=== PATIENT | male | born 1950 | race American Indian/Alaskan Native ===

== ENCOUNTER 2016-12-17 16:21 | Outpatient (CLI) | payer OTHER ==
--- NOTE | 2016-12-18 11:53 | Magnetic Resonance Report ---
MRI UPPER EXTREMITY JOINT LEFT WITHOUT CONTRAST History: Left shoulder fracture, pain. Technique: Multisequence, multiplanar MRI without contrast. Comparison: None. Findings: Very subtle nondisplaced fracture lines and bone marrow edema are identified in the lesser tuberosity of the proximal humerus. This is best demonstrated on the coronal T1 image 10. The remaining bone marrow signal is within normal limits. The rotator cuff is abnormal. There is severe thinning and attenuation of the distal supraspinatus tendon. A focal full thickness defect is suspected 1 cm from its insertion site on the proximal humerus. There is thickening and increased intrinsic signal in the subscapularis tendon but no full thickness tear. The infraspinatus and teres minor are within normal limits. The biceps tendon and its anchor upon the superior labrum is intact. No gross labral defect. Moderate hypertrophic osteoarthritic changes are identified at the a.c. joint. Inferior spurring places mild mass effect on the musculotendinous junction of the supraspinatus tendon. Impingement syndrome should be considered. Small joint effusion and small fluid in the subdeltoid bursa are noted. Impression: Subtle nondisplaced fracture lines are identified in the lesser tuberosity of the left humerus as described. Focal full thickness tear of the distal supraspinatus tendon as outlined above. Tendinosis of the subscapularis tendon.
== END 2016-12-17 16:22 | disposition home or self-care (01) ==
LOC: MRI 16:21
PROVIDERS: ATTEND Orthopaedic Surgery Orthopaedic Trauma
DX: S42.265D Nondisplaced fracture of lesser tuberosity of left humerus, subsequent encounter for fracture with routine healing (principal); M75.02 Adhesive capsulitis of left shoulder; M75.102 Unspecified rotator cuff tear or rupture of left shoulder, not specified as traumatic; M25.412 Effusion, left shoulder; X58.XXXD Exposure to other specified factors, subsequent encounter; M75.42 Impingement syndrome of left shoulder

== ENCOUNTER 2017-04-01 16:09 | Outpatient (CLI) | payer OTHER ==
--- NOTE | 2017-04-04 09:53 | Magnetic Resonance Report ---
MR LOWER EXTREMITY JOINT LEFT WITHOUT CONTRAST HISTORY: Left knee pain. TECHNIQUE: Multiple T1 and T2-weighted images with and without fat suppression were obtained. FINDINGS: Correlation is made with the MRI right knee performed the same day and bilateral knee x-rays dated 12/10/15. There is normal bone marrow signal throughout the visualized osseous structures. No evidence for fracture, bone lesion or bone marrow edema. There is mild diffuse cartilage thinning throughout all 3 compartments of the left knee. No full thickness cartilage defect or osteochondral defect. The ACL, PCL, MCL, LCL complex and extensor complex are intact. The menisci are within normal limits. No significant degenerative findings or tear. Trace joint effusion is identified of uncertain origin. No popliteal cyst. The periarticular musculature is within normal limits. IMPRESSION: Trace joint effusion. Mild diffuse cartilage thinning consistent with early osteoarthritic changes. Otherwise unremarkable MR of the left knee. No internal derangement is detected.
--- NOTE | 2017-04-04 09:58 | Magnetic Resonance Report ---
MR LOWER EXTREMITY JOINT RIGHT WITHOUT CONTRAST History: Right knee pain. Technique: Multiple T1 and T2-weighted images with and without fat saturation were obtained. Findings: Comparison is made to the MR of the left knee performed the same day and bilateral knee films performed 12/10/15. The bone marrow signal is within normal limits. No evidence for fracture, bone lesion or bone marrow edema. 5 mm bone cyst or subchondral cyst in the anterior medial tibial plateau is noted. There is mild diffuse cartilage thinning throughout all 3 compartments of the right knee. The lateral compartment appears most affected. No full thickness cartilage defect or osteochondral defect is identified. The ACL, PCL, MCL, LCL complex and extensor complex are intact. The menisci are within normal limits. No significant degeneration or tear. Trace joint effusion is identified similar to the left knee. No popliteal cyst. The periarticular musculature is within normal limits. Impression: Trace joint effusion. Mild diffuse cartilage thinning and early osteoarthritic findings. Otherwise unremarkable MR of the right knee. No internal derangement is detected. These findings appears symmetric with the left knee.
== END 2017-04-01 16:10 | disposition home or self-care (01) ==
LOC: MRI 16:09
PROVIDERS: ATTEND Orthopaedic Surgery Orthopaedic Trauma
DX: M17.0 Bilateral primary osteoarthritis of knee (principal); M72.0 Palmar fascial fibromatosis [Dupuytren]; M75.81 Other shoulder lesions, right shoulder; M25.862 Other specified joint disorders, left knee; M25.861 Other specified joint disorders, right knee
CPT/HCPCS: 73721

== ENCOUNTER 2017-04-29 16:19 | Outpatient (CLI) | payer OTHER ==
--- NOTE | 2017-05-03 14:59 | Magnetic Resonance Report ---
MRI UPPER EXTREMITY JOINT LEFT WITHOUT CONTRAST HISTORY: Left shoulder pain. TECHNIQUE: Multisequence, multiplanar MRI without contrast through the left shoulder. COMPARISON: 12/17/16. FINDINGS: The previously described subtle fracture lines in the proximal humerus are no longer identified and presumably represents a healed fracture. The remaining bone marrow signal is within normal limits. There are moderate hypertrophic osteoarthritic changes at the a.c. joint. Inferior spurring abuts the musculotendinous junction of the supraspinatus tendon. Impingement syndrome could be considered. There are minimal osteoarthritic changes at the glenohumeral joint. Focal full thickness tear in the distal, anterior supraspinatus tendon is again noted and unchanged. Thickening and increased intrinsic signal in the subscapularis tendon is also unchanged consistent with tendinosis. The infraspinatus and teres minor tendons are intact and unremarkable. The biceps tendon remains attached. There appears to be increased signal and thickening in the horizontal portion of the biceps tendon. This could represent advanced tendinosis or longitudinal tear. No complete rupture. No gross labral abnormality is appreciated. Trace joint effusion and trace fluid in the subdeltoid bursa are noted. IMPRESSION: Suspected proximal left humerus fracture as healed since 12/17/16. Full-thickness tear in the distal supraspinatus tendon, unchanged. Tendinosis of the subscapularis tendon, unchanged. There appears to be significant tendinosis versus longitudinal tear in the horizontal portion of the long head of the biceps tendon on today's exam. Trace joint effusion and fluid in the subdeltoid bursa. Degenerative changes.
--- NOTE | 2017-05-03 15:11 | Magnetic Resonance Report ---
MRI UPPER EXTREMITY JOINT RIGHT WITHOUT CONTRAST HISTORY: Right shoulder pain. TECHNIQUE: Multisequence, multiplanar MRI without contrast through the right shoulder. Comparison: None. Findings: The right humeral head is high riding with respect to the glenoid. There is obliteration of the acromiohumeral space. Complete rupture with retraction of the supraspinatus tendon is identified. There is fatty atrophy of the supraspinatus muscle consistent with a chronic tear. The infraspinatus tendon appears abnormal as well. Partial tear of the infraspinatus is likely present. There is thickening and increased intrinsic signal in the subscapularis tendon consistent with advanced tendinosis. The teres minor tendon is intact. The horizontal portion of the long head of the biceps tendon is abnormal with increased signal and thickening suggesting tendinosis or partial tear. There also appears to be a SLAP lesion involving the superior labrum. No gross labral defect otherwise. Advanced osteoarthritic changes are identified at the acromioclavicular joint and to a lesser extent the glenohumeral joint. There is no evidence for fracture or dislocation. Degenerative subchondral cyst in the lateral humeral head is noted. Small joint effusion. Impression: Complete rupture of the supraspinatus tendon with retraction. Fatty atrophy of the supraspinatus muscle belly is consistent with a chronic tear. Probable full-thickness tear of at least a portion of the infraspinatus tendon. Tendinosis of the subscapularis tendon. Tendinosis versus longitudinal tear in the long head of the biceps tendon. SLAP lesion. Moderate to severe osteoarthritis.
== END 2017-04-29 16:20 | disposition home or self-care (01) ==
LOC: MRI 16:19
PROVIDERS: ATTEND General Practice
DX: M75.121 Complete rotator cuff tear or rupture of right shoulder, not specified as traumatic (principal); M19.011 Primary osteoarthritis, right shoulder; M19.012 Primary osteoarthritis, left shoulder; M25.811 Other specified joint disorders, right shoulder; M75.81 Other shoulder lesions, right shoulder; S42.202D Unspecified fracture of upper end of left humerus, subsequent encounter for fracture with routine healing; X58.XXXD Exposure to other specified factors, subsequent encounter

== ENCOUNTER 2020-11-03 01:22 | Emergency (ER) | payer MEDICARE, OTHER ==
[2020-11-03] MEDS ORDERED: FLUORESCEIN 1 MG STRIP OP ONE (05:23)
[2020-11-03] MEDS ORDERED: TETRACAINE 0.5% OPHTH SOLN 4ML OU PRN (05:23)
--- NOTE | 2020-11-03 05:39 | Emergency Department Report ---
ED Eye Problem HPI - General Chief complaint: Eye Problems Stated complaint: EYE PAIN Source: patient Mode of arrival: Ambulatory Limitations: No Limitations - History of Present Illness Initial comments: Patient is a 70-year-old -[place] male with a history of idr-[id number]-zomeasfar diabetes who presents to the ED with complaint of acute onset persistent severe left eye pain after grass and salt debris is spilled and hit his left eye while he was mowing grass on his lawn 4 days ago. Patient states that the pain has been constant and persistent and that there is a f oreign body sensation in his left eye and therefore he believes that there is still some debris in his left eye despite the fact that he irrigated his left eye extensively after the injury. Patient denies dizziness, syncope, chest pain, shortness of breath, abdominal pain, change in vision, headache, neck pain, fever and chills. MD chief complaint: eye pain (Left eye pain), eye redness (left eye pain), eye injury (left eye pain) -: Sudden, days(s) (4) Onset Description: sudden, other (grass debris hit left eye when cutting grass) Location: left eye Place: street/outdoors If Injury: direct trauma (gras and soil debris hit left eye) Eye Symptoms: burning, redness, pain, foreign body sensation, discharge Severity: severe Severity scale (0 -10): 7 If Pain, Quality: sharp, burning, aching, throbbing Consistency: constant Context: trauma, injury Associated Symptoms: none. denies: headache, neck pain, nausea/vomiting, cough, rhinorrhea Treatments Prior to Arrival: none - Related Data Patient Tetanus UTD: Yes Home Medications Medication Instructions Recorded Confirmed Last Taken traMADoL [Ultram] 50 mg PO Q4HR PRN 12/10/15 12/10/15 12/09/15 20:00 Previous Rx's Medication Instructions Recorded Last Taken Type Cyclobenzaprine HCl [Flexeril 5 MG 5 mg PO TID #20 tab 12/10/15 Unknown Rx TAB] Ibuprofen [Motrin 800 MG tab] 800 mg PO Q8HR PRN #30 tablet 12/10/15 Unknown Rx Gentamicin 0.3% Ophth Soln 1 drops OP Q4H #5 ml 11/03/20 Unknown Rx Ibuprofen [Motrin] 600 mg PO Q8H PRN #24 tablet 11/03/20 Unknown Rx Allergies Allergy/AdvReac Type Severity Reaction Status Date / Time Sulfa (Sulfonamide Allergy Hives Verified 12/10/15 08:36 Antibiotics) ED Review of Systems ROS: Stated complaint: EYE PAIN Other details as noted in HPI Constitutional: denies: chills, fever Eyes: eye pain (left eye pain), eye discharge (left). denies: vision change ENT: denies: ear pain, throat pain Respiratory: denies: cough, shortness of breath, wheezing Cardiovascular: denies: chest pain, palpitations Endocrine: no symptoms reported Gastrointestinal: denies: abdominal pain, nausea, diarrhea Genitourinary: denies: urgency, dysuria Musculoskeletal: denies: back pain, joint swelling, arthralgia Skin: denies: rash, lesions Neurological: denies: headache, weakness, paresthesias Psychiatric: denies: anxiety, depression Hematological/Lymphatic: denies: easy bleeding, easy bruising ED Past Medical Hx - Past Medical History Previous Medical History?: Yes Hx Diabetes: Yes (BORDERLINE) - Surgical History Past Surgical History?: Yes Additional Surgical History: DOUBLE HERNIA REPAIR - Social History Smoking Status: Never Smoker Substance Use Type: None - Medications Home Medications: Home Medications Medication Instructions Recorded Confirmed Last Taken Type Cyclobenzaprine HCl [Flexeril 5 MG 5 mg PO TID #20 tab 12/10/15 Unknown Rx TAB] Ibuprofen [Motrin 800 MG tab] 800 mg PO Q8HR PRN #30 tablet 12/10/15 Unknown Rx traMADoL [Ultram] 50 mg PO Q4HR PRN 12/10/15 12/10/15 12/09/15 20:00 History Gentamicin 0.3% Ophth Soln 1 drops OP Q4H #5 ml 11/03/20 Unknown Rx Ibuprofen [Motrin] 600 mg PO Q8H PRN #24 tablet 11/03/20 Unknown Rx ED Physical Exam - General Limitations: No Limitations General appearance: alert, in no apparent distress - Head Head exam: Present: atraumatic, normocephalic, normal inspection - Eye Eye exam: Present: normal appearance, PERRL, EOMI, other (Left conjunctival erythema with thick purulent discharge; Bond lamp exam with fluorescein dye reveals left lateral conjunctival abrasion; visual acuity however is intact.) Pupils: Present: normal accommodation - ENT ENT exam: Present: normal exam, normal orophraynx, mucous membranes moist, TM's normal bilaterally, normal external ear exam - Neck Neck exam: Present: normal inspection, full ROM - Respiratory Respiratory exam: Present: normal lung sounds bilaterally. Absent: respiratory distress, wheezes, rales, rhonchi, chest wall tenderness, accessory muscle use, decreased breath sounds, prolonged expiratory - Cardiovascular Cardiovascular Exam: Present: regular rate, normal rhythm, normal heart sounds. Absent: systolic murmur, diastolic murmur, rubs, gallop - GI/Abdominal GI/Abdominal exam: Present: soft, normal bowel sounds. Absent: tenderness, guarding, rebound, hyperactive bowel sounds, hypoactive bowel sounds, organomegaly - Extremities Exam Extremities exam: Present: normal inspection, full ROM, normal capillary refill - Back Exam Back exam: Present: normal inspection, full ROM. Absent: tenderness, CVA tenderness (R), CVA tenderness (L), muscle spasm, paraspinal tenderness, vertebral tenderness - Neurological Exam Neurological exam: Present: alert, oriented X3, CN II-XII intact, normal gait, reflexes normal - Psychiatric Psychiatric exam: Present: normal affect, normal mood - Skin Skin exam: Present: warm, dry, intact, normal color. Absent: rash ED Course Vital Signs 11/03/ 02:28 Temperature 98.8 F Pulse Rate 83 Respiratory 18 Rate Blood Pressure 163/80 O2 Sat by Pulse 99 Oximetry ED Medical Decision Making - Medical Decision Making This is a 70-year-old -[place] male with a history of hyh-[id number] diabetes who presents to the ED with complaint of acute onset persistent severe left eye pain after grass and salt debris is spilled and hit his left eye while he was mowing grass on his lawn 4 days ago. Patient states that the pain has been constant and persistent and that there is a foreign body sensation in his left eye and therefore he believes that there is still some debris in his left eye despite the fact that he irrigated his left eye extensively after the injury. In the ED, patient is alert and oriented x3 and is not in distress. Patient was treated for pain in the ED and left eye pain was also treated with tetracaine ophthalmic solution drops. Bond lamp exam with fluorescein dye revealed left lateral conjunctival abrasion, and physical exam revealed matting and purulent discharge in the left eye. Visual acuity is unremarkable bilaterally. On reevaluation, patient pain is well controlled medications. Patient will discharge home on pain medications and antibiotic eyedrops and was advised to follow-up with his primary care physician in 5 to 7 days for reevaluation. Patient was otherwise advised return to the ED immediately if symptoms get worse. - Differential Diagnosis Corneal abrasion; conjunctival abrasion; eye injury; conjunctivitis Critical care attestation.: If time is entered above; I have spent that time in minutes in the direct care of this critically ill patient, excluding procedure time. ED Disposition Clinical Impression: Acute bacterial conjunctivitis of left eye Left eye injury Qualifiers: Encounter type: initial encounter Qualified Code(s): S05.92XA - Unspecified injury of left eye and orbit, initial encounter Left cornea abrasion Qualifiers: Encounter type: initial encounter Qualified Code(s): S05.02XA - Injury of conjunctiva and corneal abrasion without foreign body, left eye, initial encounter Disposition: TO HOME OR SELFCARE Is pt being admited?: No Does the pt Need Aspirin: No Condition: Stable Instructions: Corneal Abrasion, [id number], Bacterial Conjunctivitis, Adult, [id number] Additional Instructions: Take medication with food, drink plenty of fluids and follow-up with your primary care physician in 5 to 7 days for reevaluation. Return to the ED immediately if symptoms get worse. Consider following up with the crib attendant as advised. Prescriptions: Gentamicin 0.3% Ophth Soln 1 drops OP Q4H #5 ml Ibuprofen [Motrin] 600 mg PO Q8H PRN #24 tablet PRN Reason: Pain Referrals: DR SALLY [Other] - 3-5 Days MATEO JIMENEZ MD [Staff Physician] - 3-5 Days Time of Disposition: 05:45 Print Language: IRAQI
[2020-11-03] MEDS ORDERED: IBUPROFEN 600 MG TAB PO ONE (05:41)
[2020-11-03 06:31] VITALS: BP 149/78
== END 2020-11-03 06:33 | disposition home or self-care (01) ==
LOC: ED 01:22
DX: S05.92XA Unspecified injury of left eye and orbit, initial encounter (principal); S05.02XA Injury of conjunctiva and corneal abrasion without foreign body, left eye, initial encounter; H10.89 Other conjunctivitis; E11.9 Type 2 diabetes mellitus without complications; Z79.899 Other long term (current) drug therapy; W20.8XXA Other cause of strike by thrown, projected or falling object, initial encounter; Y93.89 Activity, other specified; Y92.89 Other specified places as the place of occurrence of the external cause; Y99.8 Other external cause status
CPT/HCPCS: 99283